=== PATIENT | female | born 1955 | race Caucasian/White ===

== ENCOUNTER → 2017-06-11 17:36 | Outpatient (CLI) | payer BC ==
[2015-03-16 11:32] VITALS: BMI 24.9
[~2017-06-11 17:36] MED LIST: AMBIEN10 MG PO; TENORMIN25 MG PO
== END | disposition home or self-care (01) ==
LOC: D.LABREF 17:36
DX: N39.0 Urinary tract infection, site not specified (principal)

== ENCOUNTER → 2018-01-05 07:51 | Outpatient (CLI) | payer BC ==
[2015-03-16 11:32] VITALS: BMI 24.9
== END ==
LOC: D.MAMMO 07:51
DX: Z12.31 Encounter for screening mammogram for malignant neoplasm of breast (principal)

== ENCOUNTER → 2018-01-30 19:39 | Outpatient (CLI) | payer BC ==
[2015-03-16 11:32] VITALS: BMI 24.9
== END | disposition home or self-care (01) ==
LOC: D.MAMMO 10:30
DX: R92.8 Other abnormal and inconclusive findings on diagnostic imaging of breast (principal)

== ENCOUNTER 2019-07-01 08:00 | Outpatient (CLI) | payer BC ==
[2015-03-16 11:32] VITALS: BMI 24.9
== END 2019-07-01 23:59 | disposition home or self-care (01) ==
LOC: D.MAMMO 08:00
PROVIDERS: ATTEND Family Medicine
DX: Z12.31 Encounter for screening mammogram for malignant neoplasm of breast (principal)